=== PATIENT | female | born 1950 | race Caucasian/White ===

== ENCOUNTER → 2018-08-14 | Outpatient (CLI) | payer OTHER | LOC: M.CT 07:47 | DX: Z13.6 Encounter for screening for cardiovascular disorders (principal); I25.10 Atherosclerotic heart disease of native coronary artery without angina pectoris ==

== ENCOUNTER → 2018-08-14 | Outpatient (CLI) | payer MEDICARE, OTHER | LOC: M.ULTRA 07:42 | DX: I65.23 Occlusion and stenosis of bilateral carotid arteries (principal); I10 Essential (primary) hypertension; E78.5 Hyperlipidemia, unspecified; E11.9 Type 2 diabetes mellitus without complications ==

== ENCOUNTER → 2018-10-12 | Outpatient (CLI) | payer MEDICARE, OTHER ==
--- NOTE | 2018-10-12 17:30 | CARDNUC ---
[place] [address] CARDIAC NUCLEAR IMAGING REPORT Name: SANTIAGO GRAF Room: [facility]#: [id number] Admission: 10/12/18 Attend Phys: Remy Arboleda MD Discharge: Date of : 52 Date of Service: 10/12/18 1730 Report #: [id number] THIS REPORT FOR: //name// APPROVED REPORT Imaging Protocol: Rest Tc-99m/Stress Tc-99m 1 day Study performed: 10/12/2018 13:30:00 Indication: elevated calcium score Patient Location: Out-Patient Stress Tech: Casi Rivera Stress Nurse: Sol Moltey RN NM Tech:GINGER Camilo Ht: 5 ft 4 in Wt: 186 lbs BSA: 1.90 m2 BMI: 31.92 Medical History Medications: ASA, lisinopril, HCTZ, statin Allergies: pneumococcal vaccine Cardiac Risk Factors: Age, HLP, HTN, DM Previous Cardiac Procedures: none Resting Data Rest SPECT myocardial perfusion imaging was performed in supine position 30 minutes following the intravenous injection of 10.2 mCi of Tc-99m Sestamibi. Time of rest injection: 1335 Date: 10/12/2018 The images were gated to evaluate regional wall motion and calculate left ventricular ejection fraction. Administration Route: IV Administration Site: Right Hand Exercise Stress At peak stress, the patient was injected intravenously with 34.0mCi of Tc-99m Sestamibi. Time of stress injection: 1440 Date: 10/12/2018 Administration Route: IV Administration Site: Right Hand Gated Stress SPECT was performed 30 minutes after stress injection. The images were gated to evaluate regional wall motion and calculate left ventricular ejection fraction. [place] [address] CARDIAC NUCLEAR IMAGING REPORT Name: SANTIAGO GRAF Room: [facility]#: [id number] Admission: 10/12/18 Attend Phys: Remy Arboleda MD Discharge: Date of : 52 Date of Service: 10/12/18 1730 Report #: [id number] Stress Test Details Stress Test: Exercise stress testing was performed using a Rufino protocol. HR Max Heart Rate (APMHR): 154 bpm Resting HR: 92 bpm Target HR (85% APMHR): 130 bpm Max HR Achieved: 138 bpm % of APMHR: 89 Recovery HR: 92 bpm HR response to stress: Normal HR response to stress BP Resting BP: 183/90 mmHg Max BP: 208/80 mmHg Recovery BP: 166/90 mmHg BP response to stress: Abnormal hypertensive response to stress. ECG Resting ECG: Sinus Rhythm Stress ECG: Sinus Tachycardia ST Change: Horizontal ST depression Maximum ST Deviation: 0.5 mm Arrhythmia: None Recovery ECG: Sinus Rhythm Recovery ST Change: Horizontal ST depression Recovery ST Deviation: 0.5 mm Recovery Arrhythmia: None Clinical Reason for Termination: dyspnea Stress Symptoms: SOA Exercise duration: 5 min 0 sec Exercise capacity: 7.03 METs Overall Exercise Capacity for Age: Normal The patient exercised 5 minutes on the standard Rufino protocol. She had no significant chest discomfort with exercise. Stress ECG Conclusion The baseline 12-lead EKG shows sinus rhythm without significant ST or T wave abnormality. With exercise and in recovery the patient had 0.[address] segment depression. There were no stress-induced arrhythmias. ST segment depression does not meet diagnostic criteria for stress-induced ischemia. Study Quality Study: [place] [address] CARDIAC NUCLEAR IMAGING REPORT Name: SANTIAGO GRAF Room: [facility]#: [id number] Admission: 10/12/18 Attend Phys: Remy Arboleda MD Discharge: Date of : 52 Date of Service: 10/12/18 1730 Report #: [id number] Artifact: No artifact Study Data At rest, the left ventricular ejection fraction was 74%.. Post stress, the left ventricular ejection was 68%.. TID = 0.98. Perfusion Normal left ventricular perfusion. Wall Motion Normal left ventricular wall motion. Nuclear Conclusion ECG Findings: negative for ischemia Clinical Findings: negative for ischemia Nuclear Findings: negative for ischemia Exercise Capacity: limited Left Ventricular Function: normal Risk Study: low Myocardial perfusion images show no defect to suggest infarct or ischemia. Left ventricular systolic function appears normal on gated studies. This is a low risk study. <Conclusion> The baseline 12-lead EKG shows sinus rhythm without significant ST or T wave abnormality. With exercise and in recovery the patient had 0.[address] segment depression. There were no stress-induced arrhythmias. ST segment depression does not meet diagnostic criteria for stress-induced ischemia. <ELECTRONICALLY SIGNED> By: Rhys Guadalupe MD, FACC 10/12/18 1730 1730 1730 Rhys Guadalupe MD, FACC /INF
== END ==
LOC: M.NUC 08-24 10:44
DX: I25.10 Atherosclerotic heart disease of native coronary artery without angina pectoris (principal); I10 Essential (primary) hypertension; E11.9 Type 2 diabetes mellitus without complications; E78.5 Hyperlipidemia, unspecified